=== PATIENT | male | born 1945 | race Caucasian/White ===

== ENCOUNTER 2020-03-16 10:15 | Outpatient (CLI) | payer MEDICARE ==
[~2020-03-16 10:15] MED LIST: AMLODIPINE PO; CARVEDILOL PO; HYDROCHLOROTHIAZIDE PO; LOSARTAN PO; WARFARIN PO
[2020-03-16] MEDS ORDERED: LOSA1TAB22 PO (10:44)
[2020-03-16] MEDS ORDERED: AMLO5TAB4 PO (10:44)
[2020-03-16] MEDS ORDERED: triamcinolone TD (10:44)
[2020-03-16] MEDS ORDERED: WARF-36 PO (10:44)
[2020-03-16] MEDS ORDERED: CARV6.2512 PO (10:44)
[2020-03-16 11:19] LABS: BASOPHILS # (AUTO) 0.04 x10^3/uL (0-0.1); BASOPHILS % (AUTO) 0 % (0-1); EOSINOPHILS # (AUTO) 0.34 x10^3/uL (0-0.4); EOSINOPHILS % (AUTO) 4 % (1-7); LYMPHOCYTES # (AUTO) 2.23 x10^3/uL (1-3.4); LYMPHOCYTES % (AUTO) 26 % (22-44); MD NO; MEAN CORPUSCULAR HEMOGLOBIN 31.8 pg (27.5-34.5); MEAN CORPUSCULAR HGB CONC 33.5 g/dL (33.2-36.2); MEAN PLATELET VOLUME 8.9 fL (7.4-10.4); MONOCYTES # (AUTO) 0.79 x10^3/uL (0.2-0.8); MONOCYTES % (AUTO) 9 % (2-9); NEUTROPHILS % (AUTO) 60 % (42-75); PLATELET COUNT 243 x10^3/uL (130-400); RED BLOOD COUNT 4.81 x10^6/uL (4.38-5.82)
[2020-03-16 11:26] LABS: INTERNATIONAL NORMALIZED RATIO 1.1 (0.93-1.1); PROTHROMBIN TIME 11.7 Seconds (9.6-11.5)
[2020-03-16 11:28] LABS: ALANINE AMINOTRANSFERASE 29 U/L (12-78); ALBUMIN 3.7 g/dL (3.4-5.0); ANION GAP 6 mmol/L (5-15); CALCIUM 8.8 mg/dL (8.5-10.1); CHLORIDE 110 mmol/L (98-107); CREATININE 1.14 mg/dL (0.7-1.3)
[2020-03-16 11:30] LABS: ALKALINE PHOSPHATASE 87 U/L (45-117); BILIRUBIN,TOTAL 0.6 mg/dL (0.2-1.0); TOTAL PROTEIN 7.3 g/dL (6.4-8.2)
== END 2020-03-16 23:59 | disposition home or self-care (01) ==
LOC: STAR 10:15
PROVIDERS: ATTEND Orthopaedic Surgery
DX: Z01.818 Encounter for other preprocedural examination (principal); Z11.59 Encounter for screening for other viral diseases; M17.11 Unilateral primary osteoarthritis, right knee; I25.2 Old myocardial infarction; R94.31 Abnormal electrocardiogram [ECG] [EKG]
CPT/HCPCS: 36415; 80053; 83036; 85025; 85610; 85730; 87081; 87635; 93005

== ENCOUNTER 2020-03-21 05:27 | Observation (INO) | payer MEDICARE, OTHER ==
[~2020-03-21] VITALS: Ht 180.3 cm; Wt 115.9 kg
[~2020-03-21 05:27] MED LIST changes: +AMLO5TAB4 PO; +CARV6.2512 PO; +LOSA1TAB22 PO; +WARF-36 PO; +triamcinolone TD
[2020-03-21] MEDS ORDERED: LACTATED RINGERS 1,000 ML IV SCH (05:50)
[2020-03-21 06:00] VITALS: BP 137/98
[2020-03-21] MEDS ORDERED: ACETAMINOPHEN 500 MG TABLET PO ONE (06:00)
[2020-03-21] MEDS ORDERED: GABAPENTIN 300 MG CAPSULE PO ONE (06:00)
[2020-03-21] MEDS ORDERED: CHLORHEXIDINE 15 ML UDC MM ONE (06:00)
[2020-03-21] MEDS ORDERED: MIDAZOLAM 1 MG/ML, 2ML ONE (06:16)
[2020-03-21] MEDS ORDERED: ROPIvacaine/PF 0.5%, 30 ML ONE ×2 (06:16→06:24)
[2020-03-21] MEDS ORDERED: FENTANYL PF 250 MCG/5ML ONE (06:16)
[2020-03-21] MEDS ORDERED: TRANEXAMIC ACID 100 MG/ML, 10ML ONE ×2 (06:23)
[2020-03-21] MEDS ORDERED: KETOROLAC 60 MG/2 ML ONE (06:23)
[2020-03-21] MEDS ORDERED: ROPIvacaine/PF 0.5%, 20 ML ONE (06:24)
[2020-03-21] MEDS ORDERED: EPINEPHRINE 1 MG/ML, 1ML ONE (06:24)
[2020-03-21] MEDS ORDERED: SODIUM CHLORIDE 0.9% 50 ML ONE (06:24)
[2020-03-21] MEDS ORDERED: VANCOMYCIN 1,000 MG ONE (06:24)
[2020-03-21 06:31] LABS: INTERNATIONAL NORMALIZED RATIO 1.04 (0.93-1.1)
[2020-03-21] MEDS ORDERED: PROPOFOL 10 MG/ML, 20ML ONE (06:52)
[2020-03-21] MEDS ORDERED: ONDANSETRON 2MG/ML, 2ML ONE (06:52)
[2020-03-21] MEDS ORDERED: ROCURONIUM 10 MG/ML,10ML ONE (06:52)
[2020-03-21] MEDS ORDERED: NEOSTIGMINE 1 MG/ML, 10ML ONE (06:52)
[2020-03-21] MEDS ORDERED: GLYCOPYRROLATE 0.2MG/1ML, 5ML ONE (06:52)
[2020-03-21] MEDS ORDERED: CEFAZOLIN 1,000 MG ONE (06:52)
[2020-03-21] MEDS ORDERED: METOPROLOL 1 MG/ML, 5ML ONE (06:52)
[2020-03-21] MEDS ORDERED: HYDROmorphone 1 MG/ML, 1ML INJ IV PRN (07:00)
[2020-03-21] MEDS ORDERED: BISACODYL 10 MG SUPP PR PRN (07:00)
[2020-03-21] MEDS ORDERED: hydrALAzine 20 MG/ML, 1ML IV PRN (07:00)
[2020-03-21] MEDS ORDERED: ONDANSETRON 4 MG TABLET PO PRN (07:00)
[2020-03-21] MEDS ORDERED: SENNA/DOCUSATE TABLET PO PRN (07:00)
[2020-03-21] MEDS ORDERED: METOPROLOL 1 MG/ML, 5ML IV PRN (07:00)
[2020-03-21] MEDS ORDERED: FENTANYL PF 100 MCG/2ML IV PRN (07:00)
[2020-03-21] MEDS ORDERED: ZOLPIDEM 5MG TABLET PO PRN (07:00)
[2020-03-21] MEDS ORDERED: OXYcodone 5 MG/5 ML ORAL.SOL UDC PO PRN (07:00)
[2020-03-21] MEDS ORDERED: ONDANSETRON 2MG/ML, 2ML IV PRN (07:00)
[2020-03-21] MEDS ORDERED: DIPHENHYDRAMINE 50 MG CAPSULE PO PRN (07:00)
[2020-03-21] MEDS ORDERED: MAGNESIUM HYDROXIDE 8%, 30ML UDC PO PRN (07:00)
[2020-03-21] MEDS ORDERED: LABETALOL 5MG/ML, 20ML IV PRN (07:00)
[2020-03-21] MEDS ORDERED: ONDANSETRON 2MG/ML, 2ML IVPush PRN (07:00)
[2020-03-21] MEDS: HYDROmorphone 1 MG/ML, 1ML INJ IVPush PRN ×3 (08:29→09:31)
[2020-03-21] MEDS ORDERED: HYDROmorphone 1 MG/ML, 1ML INJ ONE ×2 (08:38→09:22)
[2020-03-21] MEDS ORDERED: OXYcodone 5 MG/5 ML ORAL.SOL UDC ONE (08:39)
[2020-03-21] MEDS: DOCUSATE 100 MG CAPSULE PO SCH ×2 (09:00→19:55)
[2020-03-21] MEDS: CARVEDILOL 6.25 MG TABLET PO SCH (09:00)
[2020-03-21] MEDS ORDERED: TEMPLATE NON-FORMULARY MED. (Losartan/Hydrochlorothiazide** (Losartan-Hctz 100-25 Mg Tab PO SCH (09:00)
[2020-03-21] MEDS: AMLODIPINE 5 MG TABLET PO SCH (09:00)
[2020-03-21 12:40] VITALS: BP 127/79
[2020-03-21] MEDS: NS + 20MEQ KCL 1,000 ML IV SCH (17:14)
[2020-03-21] MEDS: CEFAZOLIN PMX 2GM/50ML 50 ML IVPB SCH (17:15)
[2020-03-21 19:12] VITALS: BP 123/72
[2020-03-21] MEDS: ACETAMINOPHEN 650 MG/20.3 ML UDC PO PRN (19:56)
[2020-03-21 23:52] VITALS: BP 122/73
[2020-03-22] MEDS: CEFAZOLIN PMX 2GM/50ML 50 ML IVPB SCH (01:07)
[2020-03-22 03:42] VITALS: BP 116/68
[2020-03-22] MEDS: NS + 20MEQ KCL 1,000 ML IV SCH (05:30)
[2020-03-22] MEDS ORDERED: DEXAMETHASONE 4 MG/ML, 1ML IVPush SCH (06:00)
[2020-03-22] MEDS: HYDROcodone/APAP 5/325 TABLET PO PRN ×2 (06:05→06:55)
[2020-03-22 07:15] VITALS: BP 115/71
[2020-03-22] MEDS: CARVEDILOL 6.25 MG TABLET PO SCH (08:19)
[2020-03-22] MEDS: DOCUSATE 100 MG CAPSULE PO SCH (08:19)
[2020-03-22] MEDS: AMLODIPINE 5 MG TABLET PO SCH (08:19)
[2020-03-22] MEDS ORDERED: LOSARTAN 100 MG TAB PO SCH (09:00)
[2020-03-22] MEDS ORDERED: HYDROCHLOROTHIAZIDE 25 MG TABLET PO SCH (09:00)
[2020-03-22] MEDS ORDERED: OXYC5TAB3 PO (10:26)
[2020-03-22] MEDS ORDERED: TRAM50TA2 PO (10:27)
[2020-03-22] MEDS: ACETAMINOPHEN 650 MG/20.3 ML UDC PO PRN ×2 (11:03→15:06)
[2020-03-22] MEDS: OXYcodone IR 5MG TABLET PO PRN ×2 (11:03→15:06)
[2020-03-22 14:06] VITALS: BP 111/71
[2020-03-22] MEDS ORDERED: WARFARIN 5 MG TABLET PO-COUM SCH (18:00)
== END 2020-03-22 15:30 | disposition home or self-care (01) ==
LOC: OUT 05:27 → 4EST 10:50 → OUT 20:20 → 4EST 20:21 → DCLOUNGE 03-22 15:25
PROVIDERS: ADMIT Orthopaedic Surgery; ATTEND Orthopaedic Surgery
DX: M17.0 Bilateral primary osteoarthritis of knee (principal); M70.61 Trochanteric bursitis, right hip; M70.62 Trochanteric bursitis, left hip; M79.10 Myalgia, unspecified site; M51.16 Intervertebral disc disorders with radiculopathy, lumbar region; I48.91 Unspecified atrial fibrillation; I10 Essential (primary) hypertension; Z79.899 Other long term (current) drug therapy
CPT/HCPCS: 27447; 36415; 85014; 85018; 85610; 85730; 96365; 96366; 96375; 97110; 97116; 97162; 97166; C1713; C1776; G0378; J0171; J0690; J1100; J1170; J1885; J2250; J2405; J2704; J2710; J2795; J3010; J3370; J3480; J7120; 87635